=== PATIENT | female | born 1955 | race Caucasian/White ===

== ENCOUNTER → 2018-05-19 | Outpatient (CLI) | payer BC ==
[~2018-05-19] MED LIST: ADDERALL20 MG PO; FEMHRT LOW DOSE PO
== END ==
LOC: MC.RAD 14:20
DX: Z12.31 Encounter for screening mammogram for malignant neoplasm of breast (principal)

== ENCOUNTER → 2019-01-14 | Outpatient (CLI) | payer BC | LOC: COL.RAD 07:30 | DX: Z01.812 Encounter for preprocedural laboratory examination (principal); K76.9 Liver disease, unspecified; M43.06 Spondylolysis, lumbar region; Z90.49 Acquired absence of other specified parts of digestive tract | CPT/HCPCS: Q9967 ==

== ENCOUNTER → 2019-02-24 | Outpatient (CLI) | payer BC | LOC: COL.RAD 07:53 | DX: K76.89 Other specified diseases of liver (principal) ==

== ENCOUNTER → 2019-04-30 | Outpatient (CLI) | payer BC | LOC: COL.RAD 08:36 | DX: R51 Headache (principal); R42 Dizziness and giddiness | CPT/HCPCS: A9585 ==

== ENCOUNTER → 2020-02-15 | Outpatient (CLI) | payer BC | LOC: COL.RAD 02-12 13:31 | DX: K52.9 Noninfective gastroenteritis and colitis, unspecified (principal) | CPT/HCPCS: A9541 ==

== ENCOUNTER 2021-09-29 10:12 | Day surgery (SDC) | payer OTHER ==
[~2021-09-29] VITALS: Ht 170.2 cm; Wt 65.8 kg
[2021-09-29] MEDS ORDERED: ESTRODIL VG (10:51)
--- NOTE | 2021-09-29 11:30 | NUR ---
Per DR: Pt is to wait 2 hours. Clear liquids only while at the facility.
[2021-09-29 11:35] VITALS: BP 130/67; PULSE 84; TEMP 97
--- NOTE | 2021-09-29 11:35 | NUR ---
Pt arrived from endo suite. Written report obtained from RALEIGH Au. Diet Sprite served. Pt denies nausea and abdominal pain. Call adames is within reach at bedside table. Family present.
--- NOTE | 2021-09-29 11:50 | NUR ---
VSS. Pt denies nausea. No vomiting. Denies stomach discomfort. Pt is tolerating diet sprite well and does not want anything else. Call adames remains within reach.
[2021-09-29 12:05] VITALS: BP 132/81; PULSE 68
--- NOTE | 2021-09-29 12:05 | NUR ---
VSS. Call adames remains within reach. Pt continues to deny stomach discomfort.
[2021-09-29 12:20] VITALS: BP 139/86; PULSE 73
[2021-09-29 12:34] VITALS: BP 120/84; PULSE 74; TEMP 97.9
[2021-09-29 12:50] VITALS: BP 127/67; PULSE 69
--- NOTE | 2021-09-29 12:50 | NUR ---
VSS. Call adames remains within reach.
--- NOTE | 2021-09-29 13:00 | NUR ---
Warm blankets provided.
[2021-09-29 13:20] VITALS: BP 138/68; PULSE 87
--- NOTE | 2021-09-29 13:20 | NUR ---
VSS. Pt denies pain and discomfort. Call adames remains within reach.
--- NOTE | 2021-09-29 13:45 | NUR ---
DC instructions and educational material reviewed with pt and . VSS. IV discontinued. Catheter tip intact. Pressure bandage applied. No redness or swelling noted. Pt denied questions or concerns. Pt denied needing assistance changing. Pt dismissed from endo via wheelchair to patient entrence by RALEIGH Childs. Pt has DC packet and pt's personal belongings. Pt transferred into the care of her , who is present to drive.
== END 2021-09-29 13:59 | disposition home or self-care (01) ==
LOC: SDCO 10:12
DX: K31.5 Obstruction of duodenum (principal); K31.89 Other diseases of stomach and duodenum; K21.9 Gastro-esophageal reflux disease without esophagitis; K58.2 Mixed irritable bowel syndrome; Z79.899 Other long term (current) drug therapy; Z90.49 Acquired absence of other specified parts of digestive tract
CPT/HCPCS: C1769; J2704; Q9967

== ENCOUNTER 2022-03-19 10:11 | Emergency (ER) | payer OTHER ==
[~2022-03-19] VITALS: Ht 172.7 cm; Wt 63.6 kg
[~2022-03-19 10:11] MED LIST changes: +ESTRODIL VG
[2022-03-19 12:21] LABS: BASO # 0.1 K/mm3 (0.0-0.2); BASO % 0.8 % (0.0-2.0); EOS # 0.1 K/mm3 (0.0-0.7); EOS % 1.5 % (0.0-4.0); GRAN # 4.2 K/mm3 (1.4-6.5); GRAN % 58.4 % (42.2-75.2); HEMATOCRIT 41.8 % (37.0-47.0); HEMOGLOBIN 14.2 g/dl (12.5-16.0); LYMPH # 2.3 K/mm3 (1.2-3.4); LYMPH % 31.7 % (20.0-51.0); MEAN CELL VOLUME 89 fl (80.0-100.0); MEAN CORPUSCULAR HEMOGLOBIN 30 pg (27-31); MEAN CORPUSCULAR HGB CONC 34 g/dl (33.0-37.0); MEAN PLATELET VOLUME 9.5 fl (7.4-10.4); MONO # 0.5 K/mm3 (0.1-0.6); PLATELET COUNT 274 K/mm3 (130-400); RED BLOOD COUNT 4.72 M/mm3 (4.10-5.30); REDCELL DISTRIBUTION WIDTH-CV 12.5 % (11.5-14.5)
[2022-03-19 12:38] LABS: TROPONIN-I 0.013 ng/mL (0.00-0.033)
[2022-03-19 12:39] LABS: ALBUMIN 4.1 gm/dL (3.4-4.8); BILIRUBIN,TOTAL 0.6 mg/dL (0.2-1.2); CALCIUM 9.1 mg/dL (8.4-10.2); CREATININE, serum 0.8 mg/dL (0.57-1.11); POTASSIUM 4.3 mmol/L (3.5-4.5)
[2022-03-19 13:27] LABS: COLLECTION METHOD CLEAN CATCH
[2022-03-19 13:36] LABS: SQUAMOUS EPITHELIAL None Seen /hpf (0-10); URINE APPEARANCE Clear (CLEAR/HAZY); URINE BACTERIA None Seen /hpf (NONE SEEN); URINE COLOR Yellow (YELLOW); URINE RBC 0-2 /hpf (0-2)
[2022-03-19 13:37] LABS: URINE BLOOD Negative (NEGATIVE); URINE GLUCOSE Negative (NEGATIVE); URINE KETONE Negative (NEGATIVE); URINE NITRATE Negative (NEGATIVE); URINE PROTEIN(semi-quant) Negative (NEGATIVE); URINE UROBILINOGEN 0.2 E.U/dL (0.2-1.0)
[2022-03-19 14:01] VITALS: BP 125/78; PULSE 70; TEMP 96.9
== END 2022-03-19 14:01 | disposition home or self-care (01) ==
LOC: COL.ER 10:11
PROVIDERS: Physician Assistant
DX: R07.81 Pleurodynia (principal); Z28.310 Unvaccinated for COVID-19